=== PATIENT | male | born 1950 | race Caucasian/White ===

== ENCOUNTER 2017-08-15 06:47 | Day surgery (SDC) | payer MEDICARE ==
[~2017-08-15] VITALS: Ht 185.4 cm; Wt 91.4 kg
[~2017-08-15 06:47] MED LIST: AMIL5; B-123000 MCG; FURO40; MULTI VITAMIN1 EACH; NADO40; POTCHL20ER; SPIR25 PO; ZINC15
[2017-08-15] MEDS ORDERED: CBD OIL (07:11)
== END 2017-08-15 08:42 | disposition home or self-care (01) ==
LOC: ORSCSDS 06:47
PROVIDERS: Internal Medicine Gastroenterology
PROC: 0DJ08ZZ Inspection of Upper Intestinal Tract, Via Natural or Artificial Opening Endoscopic (ICD-10-PCS; principal; 2017-08-15 08:00)
DX: I85.00 Esophageal varices without bleeding (principal); K74.60 Unspecified cirrhosis of liver; K76.6 Portal hypertension; K76.89 Other specified diseases of liver; Z87.891 Personal history of nicotine dependence; Z79.899 Other long term (current) drug therapy
CPT/HCPCS: J0330; J1980; J2405; J7120

== ENCOUNTER 2018-08-16 06:56 | Day surgery (SDC) | payer MEDICARE ==
[~2018-08-16] VITALS: Ht 185.4 cm; Wt 84.7 kg
[~2018-08-16 06:56] MED LIST changes: +CBD OIL
== END 2018-08-16 08:35 | disposition home or self-care (01) ==
LOC: ORSCSDS 06:56
PROVIDERS: Internal Medicine Gastroenterology
PROC: 0DJ08ZZ Inspection of Upper Intestinal Tract, Via Natural or Artificial Opening Endoscopic (ICD-10-PCS; principal; 2018-08-16 08:00)
DX: I85.00 Esophageal varices without bleeding (principal); K74.60 Unspecified cirrhosis of liver; K76.6 Portal hypertension; K31.89 Other diseases of stomach and duodenum; R18.8 Other ascites; F17.220 Nicotine dependence, chewing tobacco, uncomplicated; Z79.899 Other long term (current) drug therapy
CPT/HCPCS: J0461; J1980; J2405; J2704; J7120

== ENCOUNTER 2019-08-29 10:39 | Day surgery (SDC) | payer MEDICARE ==
[~2019-08-29] VITALS: Ht 185.4 cm; Wt 28.0 kg
== END 2019-08-29 13:25 | disposition home or self-care (01) ==
LOC: ORSCSDS 10:39
PROVIDERS: Internal Medicine Gastroenterology
PROC: 0DJ08ZZ Inspection of Upper Intestinal Tract, Via Natural or Artificial Opening Endoscopic (ICD-10-PCS; principal; 2019-08-29 11:45)
PROC: 0DBN8ZX Excision of Sigmoid Colon, Via Natural or Artificial Opening Endoscopic, Diagnostic (ICD-10-PCS; principal; 2019-08-29 11:45)
PROC: 0DBH8ZX Excision of Cecum, Via Natural or Artificial Opening Endoscopic, Diagnostic (ICD-10-PCS; principal; 2019-08-29 11:45)
PROC: 0DBL8ZX Excision of Transverse Colon, Via Natural or Artificial Opening Endoscopic, Diagnostic (ICD-10-PCS; principal; 2019-08-29 11:45)
PROC: 0DBK8ZX Excision of Ascending Colon, Via Natural or Artificial Opening Endoscopic, Diagnostic (ICD-10-PCS; principal; 2019-08-29 11:45)
DX: Z12.11 Encounter for screening for malignant neoplasm of colon (principal); D12.0 Benign neoplasm of cecum; D12.2 Benign neoplasm of ascending colon; K63.5 Polyp of colon; K57.30 Diverticulosis of large intestine without perforation or abscess without bleeding; I85.00 Esophageal varices without bleeding; K74.60 Unspecified cirrhosis of liver; Z13.810 Encounter for screening for upper gastrointestinal disorder; Z86.010 Personal history of colon polyps; Z87.891 Personal history of nicotine dependence
CPT/HCPCS: J2704; J7120

== ENCOUNTER 2020-08-26 08:20 | Day surgery (SDC) | payer OTHER ==
[~2020-08-26] VITALS: Ht 185.4 cm; Wt 94.0 kg
== END 2020-08-26 10:06 | disposition home or self-care (01) ==
LOC: ORSCSDS 08:20
PROVIDERS: Internal Medicine Gastroenterology
PROC: 0DJ08ZZ Inspection of Upper Intestinal Tract, Via Natural or Artificial Opening Endoscopic (ICD-10-PCS; principal; 2020-08-26 09:30)
DX: I85.00 Esophageal varices without bleeding (principal)
CPT/HCPCS: J0330; J0461; J2405; J2704; J7120

== ENCOUNTER 2021-04-08 16:13 | Emergency (ER) | payer OTHER ==
[~2021-04-08] VITALS: Ht 185.4 cm; Wt 88.5 kg
[2021-04-08 16:59] LABS: BASOPHILS ABSOLUTE AUTO 0.04 K/mm3 (0.00-0.23); BASOPHILS PERCENT AUTO 1 % (0-2); EOSINOPHILS ABSOLUTE AUTO 0.14 K/mm3 (0.00-0.68); EOSINOPHILS PERCENT AUTO 2 % (0-6); Hemoglobin 13.5 g/dL (13.5-17.5); IMMATURE GRAN ABSOLUTE AUTO 0.03 K/mm3 (0.00-0.10); IMMATURE GRAN PERCENT AUTO 1 % (0-1); LYMPHOCYTES ABSOLUTE AUTO 1.31 K/mm3 (0.84-5.20); LYMPHOCYTES PERCENT AUTO 21 % (21-46); MONOCYTES ABSOLUTE AUTO 0.83 K/mm3 (0.16-1.47); MONOCYTES PERCENT AUTO 13 % (4-13); Mean Corpuscular HGB 32.5 pg (26.0-34.0); Mean Corpuscular HGB Conc 34.6 g/dL (31.5-36.5); Mean Corpuscular Volume 94 fL (80-100); Mean Platelet Volume 10.9 fL (9.1-12.4); NEUTROPHILS ABSOLUTE AUTO 4.04 K/mm3 (1.96-9.15); NEUTROPHILS PERCENT AUTO 63 % (41-73); Platelet Count 175 K/mm3 (150-400); RDW Coefficient Variation 13.3 % (11.7-14.2); RDW Standard Deviation 46.1 fL (35.1-46.3); Red Blood Cell Count 4.16 M/mm3 (4.30-5.90); White Blood Cell Count 6.39 K/mm3 (4.00-11.30)
[2021-04-08 17:21] LABS: Alanine Aminotransfer (ALT/SGP 195 U/L (12-78); Albumin, Blood 3.3 g/dL (3.4-5.0); Albumin/Globulin Ratio 1.1 (0.8-1.8); Alk Phos 236 U/L (50-136); Anion Gap 7 mmol/L (6-16); Aspartate Aminotrans (AST/SGOT 139 U/L (12-37); Bilirubin, Total 12.8 mg/dL (0.1-1.0); Blood Urea Nitrogen 8 mg/dL (8-24); Bun/Creatinine Ratio 12.9 (12.0-20.0); CO2, Blood 25 mmol/L (21-32); Calcium, Blood 9.1 mg/dL (8.5-10.1); Chloride, Blood 103 mmol/L (98-108); Creatinine, Blood 0.62 mg/dL (0.60-1.20); Glomerular Filtration Rate >60 (60-); Glucose, Blood 88 mg/dL (70-99); Potassium, Blood 4.3 mmol/L (3.5-5.5); Sodium, Blood 135 mmol/L (136-145); Total Protein, Blood 6.3 g/dL (6.4-8.2)
[2021-04-08 19:34] LABS: Source, Urine Clean Catch
[2021-04-08 19:51] LABS: Appearance, Urine Clear (Clear); Bilirubin, Urine Neg (Neg); Blood, Urine Neg (Neg); Color, Urine Amber (P-Yellow); Glucose Qualitative, Urine Neg (Neg); Ketones, Urine 1+ (Neg); Leukocyte Esterase, Urine Neg (Neg); Nitrite, Urine Neg (Neg); Protein, Urine Neg (Neg); Specific Gravity, Urine 1.005 (1.003-1.022); Urobilinogen, Urine NORM (Normal); pH, Urine 6.5 (5.0-8.0)
[2021-04-08 20:47] LABS: Bilirubin, Indirect 2.8 mg/dL (0.1-0.7)
== END 2021-04-08 23:49 | disposition left against medical advice (07) ==
LOC: ER 16:13
PROVIDERS: Physician Assistant
DX: K86.9 Disease of pancreas, unspecified (principal); E80.6 Other disorders of bilirubin metabolism; R74.01 Elevation of levels of liver transaminase levels; R74.8 Abnormal levels of other serum enzymes; K83.1 Obstruction of bile duct; Z88.8 Allergy status to other drugs, medicaments and biological substances; Z79.899 Other long term (current) drug therapy; F17.220 Nicotine dependence, chewing tobacco, uncomplicated
CPT/HCPCS: 36415; 74177; 76705; 80053; 81003; 82248; 83690; 85025; 99284-25; Q9967

== ENCOUNTER 2021-05-12 09:01 | Day surgery (SDC) | payer OTHER ==
[~2021-05-12] VITALS: Ht 185.4 cm; Wt 91.8 kg
[~2021-05-12 09:01] MED LIST changes: -NADO40; +NADO40 PO
--- NOTE | 2021-05-12 12:57 | NUR ---
Patient up to Ambulate independently. Gait steady. Discharge instructions reviewed with patient. Patient verbalizes understanding. Copy given to patient to take home. Dressing to procedure site clean, dry, intact with no visible drainage, swelling, erythema or bruising noted. Lungs clear T/O to Auscultation. Patient States Post-Procedure ride home has been arranged. Discharged via wheelchair to private car for ride home.
== END 2021-05-12 13:34 | disposition home or self-care (01) ==
LOC: ORSCMMR 09:01 → ORD 10:30 → ORSCMMR 13:34
PROVIDERS: Surgery
PROC: B543ZZA Ultrasonography of Right Jugular Veins, Guidance (ICD-10-PCS; principal; 2021-05-12 11:30)
PROC: 05HM33Z Insertion of Infusion Device into Right Internal Jugular Vein, Percutaneous Approach (ICD-10-PCS; principal; 2021-05-12 11:30)
DX: C25.0 Malignant neoplasm of head of pancreas (principal); I10 Essential (primary) hypertension; I48.91 Unspecified atrial fibrillation; K74.60 Unspecified cirrhosis of liver; Z79.899 Other long term (current) drug therapy
CPT/HCPCS: 77001; C1788; J0690; J1100; J1642; J2250; J2370; J2405; J2704; J3010; J7120

== ENCOUNTER → 2021-11-29 | Outpatient (CLI) | payer OTHER ==
[2021-11-29 07:27] LABS: BASOPHILS ABSOLUTE AUTO 0.04 K/mm3 (0.00-0.23); BASOPHILS PERCENT AUTO 1 % (0-2); EOSINOPHILS ABSOLUTE AUTO 0.02 K/mm3 (0.00-0.68); EOSINOPHILS PERCENT AUTO 0 % (0-6); Hematocrit 31.8 % (37.0-53.0); Hemoglobin 11.1 g/dL (13.5-17.5); IMMATURE GRAN ABSOLUTE AUTO 0.08 K/mm3 (0.00-0.10); IMMATURE GRAN PERCENT AUTO 2 % (0-1); LYMPHOCYTES ABSOLUTE AUTO 0.73 K/mm3 (0.84-5.20); LYMPHOCYTES PERCENT AUTO 16 % (21-46); MONOCYTES ABSOLUTE AUTO 0.88 K/mm3 (0.16-1.47); MONOCYTES PERCENT AUTO 19 % (4-13); Mean Corpuscular HGB Conc 34.9 g/dL (31.5-36.5); Mean Corpuscular Volume 106 fL (80-100); NEUTROPHILS ABSOLUTE AUTO 2.93 K/mm3 (1.96-9.15); NEUTROPHILS PERCENT AUTO 63 % (41-73); Platelet Count 62 K/mm3 (150-400); RDW Coefficient Variation 12.8 % (11.7-14.2); RDW Standard Deviation 48.9 fL (35.1-46.3); White Blood Cell Count 4.68 K/mm3 (4.00-11.30)
== END | disposition home or self-care (01) ==
LOC: LAB 06:17 → LAB SHORT 06:17 → LAB FUT 08-05 14:05
PROVIDERS: Registered Nurse Oncology
DX: C25.9 Malignant neoplasm of pancreas, unspecified (principal); D70.1 Agranulocytosis secondary to cancer chemotherapy
CPT/HCPCS: 36415; 85025

== ENCOUNTER 2022-03-28 11:55 | Inpatient (IN) | payer OTHER ==
[~2022-03-28] VITALS: Ht 185.4 cm; Wt 85.1 kg
[2022-03-28 13:11] LABS: Hemoglobin 6.9 g/dL (13.5-17.5); Mean Corpuscular HGB 36.9 pg (26.0-34.0); Mean Corpuscular HGB Conc 36.3 g/dL (31.5-36.5); Mean Corpuscular Volume 102 fL (80-100); Mean Platelet Volume 12.5 fL (9.1-12.4); RDW Coefficient Variation 13.4 % (11.7-14.2); RDW Standard Deviation 49.4 fL (35.1-46.3); Red Blood Cell Count 1.87 M/mm3 (4.30-5.90)
[2022-03-28 13:19] LABS: BASOPHILS PERCENT AUTO 0 % (0-2); EOSINOPHILS PERCENT AUTO 0 % (0-6); IMMATURE GRAN ABSOLUTE AUTO 0.01 K/mm3 (0.00-0.10); IMMATURE GRAN PERCENT AUTO 7 % (0-1); LYMPHOCYTES ABSOLUTE AUTO 0.09 K/mm3 (0.84-5.20); LYMPHOCYTES PERCENT AUTO 64 % (21-46); MONOCYTES ABSOLUTE AUTO 0.03 K/mm3 (0.16-1.47); MONOCYTES PERCENT AUTO 21 % (4-13); NEUTROPHILS ABSOLUTE AUTO 0.01 K/mm3 (1.96-9.15); NEUTROPHILS PERCENT AUTO 7 % (41-73); Platelet Count 4 K/mm3 (150-400)
[2022-03-28 13:23] LABS: White Blood Cell Count 0.14 K/mm3 (4.00-11.30)
[2022-03-28 13:36] LABS: Albumin, Blood 2.1 g/dL (3.4-5.0); Albumin/Globulin Ratio 0.7 (0.8-1.8); Bilirubin, Total 4.1 mg/dL (0.1-1.0); Bun/Creatinine Ratio 37.9 (12.0-20.0); Calcium, Blood 8.6 mg/dL (8.5-10.1); Creatinine, Blood 1.16 mg/dL (0.60-1.20); Globulin, Blood 3.1 g/dL (2.2-4.0); Potassium, Blood 4.8 mmol/L (3.5-5.5); Total Protein, Blood 5.2 g/dL (6.4-8.2)
[2022-03-28 17:22] LABS: Influenza A, PCR NEGATIVE (NEGATIVE); Influenza B, PCR NEGATIVE (NEGATIVE); Resp Syncytial Virus, PCR NEGATIVE (NEGATIVE); SARS-Cov-2 (COVID-19) PCR, MMC NEGATIVE (NEGATIVE)
[2022-03-28 17:28] LABS: D-Dimer, Quantitative 9.26 mg/L FEU (0.00-0.52); International Normalized Ratio 1.83; Prothrombin Time Results 18.5 Sec (9.7-11.5)
--- NOTE | 2022-03-28 23:05 | NUR ---
CALL TO MD CHIRINOS REGARDING PATIENT STATUS, INCLUDING CBC UPON ADMISSION, AFIB RVR IN 110S - 130S, HYPOTENSION WITH MAP IN LOW 60S, 1 UNIT OF PRBC INFUSING AT THIS TIME, IV FLUIDS INFUSING. PER MD, CONTINUE TO MONITOR THE PATIENT AND REASSESS BLOOD PRESSURE UPON COMPLETION OF TRANSFUSION. MAY CONSIDER ADDITIONAL FLUID BOLUS IF NECESSARY AT THAT TIME.
[2022-03-28] MEDS ORDERED: TORSE20 PO (23:57)
[2022-03-28] MEDS ORDERED: Potassium Chlo20 ME1 PO (23:58)
[2022-03-29 00:34] LABS: Hematocrit 19.5 % (37.0-53.0); Hemoglobin 6.9 g/dL (13.5-17.5); Mean Corpuscular HGB 35.9 pg (26.0-34.0); Mean Corpuscular HGB Conc 35.4 g/dL (31.5-36.5); Mean Corpuscular Volume 102 fL (80-100); Mean Platelet Volume 11.5 fL (9.1-12.4); RDW Coefficient Variation 14.2 % (11.7-14.2); RDW Standard Deviation 52.6 fL (35.1-46.3); Red Blood Cell Count 1.92 M/mm3 (4.30-5.90)
--- NOTE | 2022-03-29 00:40 | NUR ---
CALL TO MD CHIRINOS REGARDING PERSISTENT HYPOTENSION POST PRBC TRANSFUSION. PLAN TO TRANSFER TO ICU BED 2
[2022-03-29 01:08] LABS: Platelet Count 12 K/mm3 (150-400); White Blood Cell Count 0.14 K/mm3 (4.00-11.30)
--- NOTE | 2022-03-29 03:28 | NUR ---
CALLED AND SPOKE WITH MR. REILLY'S SON AND ADVISED HIM OF HIS FATHER'S TRANSFER FROM THE PCU TO THE ICU DUE TO CONCERNS REGARDING PERSISTENT LOW BLOOD PRESSURES. HE WILL LET HIS MOTHER, MARCELLO REILLY, KNOW OF THE STATUS AND ROOM CHANGE TO ICU 2
[2022-03-29 05:28] LABS: PCO2 Arterial 44.5 mmHg (35-45); PO2 Arterial 99.1 mmHg (80-100); pH Blood Arterial 7.36 (7.35-7.45)
--- NOTE | 2022-03-29 07:36 | NUR ---
PT ARRIVED TO ICU VIA BED FROM PCU AT 0105 THIS AM, SLIDE TRANSFERRED TO BED AND TOLERATED WELL. HE WAS NOTED TO BE DROWSY BUT WITH GOOD RESPONSE TO VERBAL STIMULI, HE DID NOT ANSWER WHEN ASKED ABOUT LOCATION HOWEVER DENIED PAIN, DENIED DYSPNEA/SOB, DENIED N/V AND FOLLOWED VERBAL DIRECTIONS WELL. HYPOTENSION WAS NOTED WITH INITIAL PRESSURE ASSESSMENT AND FLUID BOLUS WAS STARTED FOLLOWED BY CALL PLACED TO DR SHAFFER, TOTAL VOLUME ORDERED FOR INITIAL BOLUS WAS 500 ML FOR COMPLETION OF SEPSIS FLUID RESUCSITATION WELL ADDITIONAL 1 UNIT OF PRBCS TO BE TRANSFUSED. PRESSURES CONTINUED TO DECLINE AND LEVOPHED WAS ORDERED, INTITALLY STARTED LEVOPHED AT 4 PERIPHERALLY WHILE MEDIPORT WAS ACCESSED, FOLLOWING WHICH, LEVOPHED WAS TITRATED UP TO [address] SHAFFER WAS NOTIFIED OF CONTINUED HYPOTENSION, VASOPRESSIN WAS ORDERED AND STARTED INFUSING AND LEVOPHED WAS TITRATED UP TO 20, DR SHAFFER NOTIFIED AND NEOSYNEPHRINE WAS ORDERED, TITRATED UP TO 40 JUST PRIOR TO REPORT TO DAY SHIFT RN. VANCO AND CEFEPIME ORDERED BY DR SHAFFER AND FIRST DOSES ADMINISTERED. PT MENTATION AND PRESSURES HAVE CONTINUED TO DECLINE, DR SHAFFER WAS CONTACTED REGARDING DIFFICULTY OBTAINING SATS AND CONTINUED TRENDING HYPOTENSION, SHE ARRIVED TO BEDSIDE AT 0500 FOR PATIENT ASSESSMENT, DR SHAFFER REMAINED AVAILABLE IN THE ICU UNTIL 0700 THIS AM. PT WAS STARTED ON CPAP WITH OXYGEN 5 LITER BLEED IN FOR PULMONARY EDEMA ON CXR. CRITICAL CARE CONSULT WAS ORDERED AND ANSWERING SERVICE NOTIFIED.
[2022-03-29 08:06] LABS: Hematocrit 23.6 % (37.0-53.0); Mean Corpuscular HGB 34.3 pg (26.0-34.0); Mean Corpuscular HGB Conc 33.9 g/dL (31.5-36.5); Mean Corpuscular Volume 101 fL (80-100); Mean Platelet Volume 10.9 fL (9.1-12.4); RDW Coefficient Variation 15.7 % (11.7-14.2); RDW Standard Deviation 58.6 fL (35.1-46.3); Red Blood Cell Count 2.33 M/mm3 (4.30-5.90)
[2022-03-29 08:11] LABS: BASOPHILS PERCENT AUTO 0 % (0-2); EOSINOPHILS PERCENT AUTO 0 % (0-6); IMMATURE GRAN ABSOLUTE AUTO 0.01 K/mm3 (0.00-0.10); IMMATURE GRAN PERCENT AUTO 8 % (0-1); LYMPHOCYTES ABSOLUTE AUTO 0.08 K/mm3 (0.84-5.20); LYMPHOCYTES PERCENT AUTO 62 % (21-46); MONOCYTES ABSOLUTE AUTO 0.03 K/mm3 (0.16-1.47); MONOCYTES PERCENT AUTO 23 % (4-13); NEUTROPHILS ABSOLUTE AUTO 0.01 K/mm3 (1.96-9.15); NEUTROPHILS PERCENT AUTO 8 % (41-73); Platelet Count 8 K/mm3 (150-400); White Blood Cell Count 0.13 K/mm3 (4.00-11.30)
--- NOTE | 2022-03-29 08:16 | NUR ---
ASSUMED CARE REPORT RECEIVED FROM LISA MORRISON. PT RESTING IN BED, EYES CLOSED. FOLLOWS COMMANDS TO SQUEEZE HANDS AND EVENTUALLY OPENS HIS EYES. BP HAS BEEN LOW DESPITE MULTIPLE PRESSORS. SPOKE WITH DR. MCCLENDON BY PHONE AND HE ORDERED EPI GTT WITH GOAL OF TITRATING OFF THE RAUL-SYNEPHRINE, BUT HAVE NTO BEEN ABLE TO TITRATE IT DOWN YET BECAUSE HYPOTENSION CONTINUES TO WORSEN, SEE FLOWSHEET. HR AFIB IN THE 1 TEENS. WEARING CPAP WITH 5L BLEED IN. SPO2 READINGS ARE SPORADIC, BUT ABG THIS AM SHOWED ADEQUATE OXYGENATION. ATTEMPTED TO GET SPO2 READING AT MULTILPLE SITES AND SWITCHED CORDS WITHOUT SUCCESS. PT'S SON CAME BY AND VISITED. UPDATED HIM ON THE AMOUNT OF MEDICATION PT IS ON TO KEEP BP UP AND HOW SERIOUS PT'S CONDITION IS. PT'S SON SAID HE WOULD LET HIS MOM KNOW AND THAT SHE WOULD BE BY TODAY.
[2022-03-29 08:31] LABS: Magnesium, Blood 1.7 mg/dL (1.6-2.4)
[2022-03-29 08:35] LABS: Albumin, Blood 1.7 g/dL (3.4-5.0); Albumin/Globulin Ratio 0.6 (0.8-1.8); Bilirubin, Total 4.9 mg/dL (0.1-1.0); Bun/Creatinine Ratio 22.8 (12.0-20.0); Calcium, Blood 8.1 mg/dL (8.5-10.1); Creatinine, Blood 2.02 mg/dL (0.60-1.20); Globulin, Blood 2.8 g/dL (2.2-4.0); Potassium, Blood 4.5 mmol/L (3.5-5.5); Total Protein, Blood 4.5 g/dL (6.4-8.2)
--- NOTE | 2022-03-29 08:51 | NUR ---
DR. MCCLENDON UPDATED ON PT STATUS AND NOTIFIED OF CRITICAL VALUES. RECEIVED ORDER FOR 2 AMPS OF D50 WELL HYDROCORTISONE, SEE EMAR.
--- NOTE | 2022-03-29 10:02 | NUR ---
DR. MCCLENDON ROUNDED ON PT AND SPOKE WITH FAMILY PROVIDING UPDATE. PT'S BP IS ACTUALLY HOLDING A MAP ABOVE 60 AFTER RECEIVING THE STEROIDS. PT'S MENTATION IS IMPROVED WITH THE BETTER BP, BUT HE STILL IS HAVING DIFFICULTY TALKING. DR. MCCLENDON DISCUSSED CODE STATUS WITH FAMILY AND THEY EXPRESSED WISHES FOR PT TO BE COMFORTABLE BUT WANTED A LITTLE TIME TO THINK IT OVER BEFORE OFFICIALLY MAKING HIM DNR. DR. MCCLENDON ASKED PT WHAT HE WANTED, BUT PT DID NOT GIVE A MEANINGFUL RESPONSE. AFTER DR. MCCLENDON LEFT BLOOD SUGAR RECHECKED AND WAS ABOVE 150, LR BOLUS INFUSING PER DR. MCCLENDON, AND MAP WAS 98 SO PHENYLEPHRINE TITRATED DOWN A LITTLE BIT. LEFT THE BEDSIDE TO CHART AND THEN HEART MONITOR ALARMED FOR ARTIFACT, BUT AT THAT TIME IT WAS REALIZED THAT PT'S HR HAD DROPPED FROM THE 1TEENS TO THE 50S. IMMEDIATELY RETURNED TO ROOM AND PT WAS UNRESPONSIVE. PT STILL BREATHING, BUT UNABLE TO PALPATE PULSE. DR. ALLRED AND ROC, ANIMAL BEHAVIORIST CALLED TO BEDSIDE. QUICKLY UPDATED PT AND THEN ASKED IF THEY WANTED STAFF TO PERFORM CPR BECAUSE IT WAS NEEDED RIGHT NOW. PT'S AND SON BOTH SAID NO CPR WITHOUT ANY HESITATION. DR. MCCLENDON LISTENED FOR A HEARTBREAT AND DIDN'T HEAR ANY. ALL MEDICATIONS STOPPED. EMOTIONAL SUPPORT PROVIDED TO FAMILY. [employer] OFFERED AND PALLIATIVE CARE MADE AWARE ALSO.
--- NOTE | 2022-03-29 10:20 | NUR ---
Spiritual care visit conducted. Pt recently and so I check in on family. They are grieving appropriately. I conduct a life brief life review, and provide therapeutic listening, grief support and a calming presence. Family respond well and show signs of being comforted.
== END 2022-03-29 09:52 | DRG 808 ==
LOC: ER 11:55 → ICUE 16:08 → ERHOLD 16:08 → PCU 19:05 → ICUE 03-29 00:56
PROVIDERS: Emergency Medicine; Nurse Practitioner Acute Care; Physician Assistant; ADMIT Internal Medicine
PROC: 30233N1 Transfusion of Nonautologous Red Blood Cells into Peripheral Vein, Percutaneous Approach (ICD-10-PCS; principal; 2022-03-28)
PROC: 30233R1 Transfusion of Nonautologous Platelets into Peripheral Vein, Percutaneous Approach (ICD-10-PCS; 2022-03-28)
PROC: 3E03329 Introduction of Other Anti-infective into Peripheral Vein, Percutaneous Approach (ICD-10-PCS; 2022-03-28)
PROC: 5A09357 Assistance with Respiratory Ventilation, Less than 24 Consecutive Hours, Continuous Positive Airway Pressure (ICD-10-PCS; 2022-03-28)
PROC: 3E033XZ Introduction of Vasopressor into Peripheral Vein, Percutaneous Approach (ICD-10-PCS; 2022-03-29)
DX: D61.810 Antineoplastic chemotherapy induced pancytopenia (principal); A41.50 Gram-negative sepsis, unspecified; R65.21 Severe sepsis with septic shock; C25.9 Malignant neoplasm of pancreas, unspecified; N39.0 Urinary tract infection, site not specified; B37.0 Candidal stomatitis; R50.81 Fever presenting with conditions classified elsewhere; T45.1X5A Adverse effect of antineoplastic and immunosuppressive drugs, initial encounter; D63.0 Anemia in neoplastic disease; K12.30 Oral mucositis (ulcerative), unspecified; R44.1 Visual hallucinations; K70.30 Alcoholic cirrhosis of liver without ascites; I48.91 Unspecified atrial fibrillation; Z20.822 Contact with and (suspected) exposure to COVID-19; Z92.21 Personal history of antineoplastic chemotherapy; Z88.8 Allergy status to other drugs, medicaments and biological substances; Z79.899 Other long term (current) drug therapy; Z98.1 Arthrodesis status; Z90.49 Acquired absence of other specified parts of digestive tract; Z98.890 Other specified postprocedural states; Z95.828 Presence of other vascular implants and grafts; Z98.42 Cataract extraction status, left eye; Z87.891 Personal history of nicotine dependence
CPT/HCPCS: 0241U; 36415; 36430; 36600; 71045; 80053; 82803; 82947; 83605; 83735; 84145; 85025; 85027; 85379; 85384; 85610; 86850; 86900; 86901; 86923; 87040; 87077; 87147; 87186; 94660; 96374; 99285-25; A9270; J0171; J0461; J0690; J0692; J1720; J2370; J2405; J3370; J7030; J7040; J7050; J7060; J7120; P9016; P9053; Q5110